=== PATIENT | female | born 1970 | race Asian ===

== ENCOUNTER 2020-05-05 17:23 | Emergency (ER) | payer BC ==
[~2020-05-05] VITALS: Ht 152.4 cm; Wt 61.2 kg
[2020-05-05 18:13] VITALS: BP 110/62
--- NOTE | 2020-05-05 18:13 | NUR ---
ED Nurse Note: Pt walked in from home. Vitals are stable on RA. Pt is febrile. Pt was diagnosed with covid on saturday, 04/29. She now feels short of breath and generalized pain.
--- NOTE | 2020-05-05 18:28 | Emergency Room Report ---
History of Present Illness General Chief Complaint: Fever Source: Patient Present Illness HPI 50 YO female presents to the ED c/o fever at home with persistent cough that is not responding to Z-Pack and mucinex. Pt. denies mucus production. Pt. reports symptoms x 8 days. She reports testing COVID positive 4 days ago. Pt. reports Her PCP rx'd her Z-pack and she has 2 more days of meds. She reports 8/10 in severity body aches. She reports she has taken naproxen twice with some reduction of her symptoms. She denies taking any today. She denies hx of asthma, COPD or smoking. Pt. denies SOB. She reports painful coughing. She denies cardiac hx. She denies CP or palpitations. She denies nasal congestion or rhinorrhea. Pt. is concerned that she may have pneumonia. No other aggravating or relieving factors at this time. She denies getting flu vaccines. 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 COVID-19 Screening: Positive COVID-19 COVID-19 Testing Source: nasal Patient History Past Medical History: see triage record Past Surgical History: none Pertinent Family History: none Now: No Reviewed Nursing Documentation: PMH: Agreed; PSxH: Agreed Nursing Documentation-PMH Past Medical History: No Stated History Review of Systems All Other Systems: negative except mentioned in HPI Physical Exam Vital Signs Date Time Temp Pulse Resp B/P (MAP) Pulse Ox O2 Delivery O2 Flow Rate FiO2 05/05/20 18:03 101.5 96 17 109/61 (77) 97 Room Air Sp02 EP Interpretation: reviewed, normal General Appearance: no apparent distress, alert, GCS 15, non-toxic Head: normocephalic, atraumatic Eyes: bilateral eye normal inspection, bilateral eye PERRL ENT: hearing grossly normal, normal voice Neck: full range of motion Respiratory: chest non-tender, lungs clear, normal breath sounds, no respiratory distress, no accessory muscle use, speaking full sentences, other - scant crackles bilateral Cardiovascular #1: regular rate, rhythm, no edema, normal capillary refill Gastrointestinal: non tender, soft Musculoskeletal: back normal, normal range of motion, gait/station normal, non- tender Neurologic: alert, motor strength/tone normal, oriented x3, sensory intact, responsive, speech normal Psychiatric: judgement/insight normal Skin: no rash, normal color Medical Decision Making PA Attestation Dr. Hannah is my supervising Physician whom patient management has been discussed with. Diagnostic Impression: Primary Impression: COVID-19 virus infection Additional Impressions: Cough Fever due to COVID-19 ER Course 50 YO female presents to the ED c/o fever at home with persistent cough that is not responding to Z-Pack and mucinex. Pt. denies mucus production. Pt. reports symptoms x 8 days. She reports testing COVID positive 4 days ago. Pt. reports Her PCP rx'd her Z-pack and she has 2 more days of meds. She reports 8/10 in severity body aches. She reports she has taken naproxen twice with some reduction of her symptoms. She denies taking any today. She denies hx of asthma, COPD or smoking. Pt. denies SOB. She reports painful coughing. She denies ca rdiac hx. She denies CP or palpitations. She denies nasal congestion or rhinorrhea. Pt. is concerned that she may have pneumonia. No other aggravating or relieving factors at this time. She denies getting flu vaccines. Ddx considered but are not limited to URI, pneumonia, PE, strep pharyngitis, meningitis, COVID-19 Vital signs: Pt. is febrile, the remaining VS are WNL H&PE are most consistent with Viral URI- no meningeal signs, oropharynx is not involved, no evidence of bacterial infection at this time. pt. nontoxic in appearance in no acute distress no respiratory distress or increased respiratory effort. ORDERS: CXR: C/W viral PNA ED INTERVENTIONS: -Tylenol PO - Prednisone 60mg PO. --PT. EDUCATION: conservative symptomatic treatment at home for COVID-19. D/w pt. signs and symptoms that would require emergency room visit/ interventions. DISCHARGE: At this time pt. is stable for d/c to home. Will provide printed patient care instructions, and any necessary prescriptions. Care plan and follow up instructions have been discussed with the patient prior to discharge. Chest X-Ray Diagnostic Results Chest X-Ray Diagnostic Results : Chest X-Ray Ordered: Yes # of Views/Limited/Complete: 1 View Indication: Shortness of Breath EP Interpretation: Yes MAXWELL Xray: Interpretation reviewed, by supervising MD, and agrees with findings. Interpretation: no effusion, no pneumothorax, no acute cardiopulmonary disease, other - Bilateral infiltrates Impression: Other - abnormal Electronically Signed by: Nancy Villegas PA-C Last Vital Signs Date Time Temp Pulse Resp B/P (MAP) Pulse Ox O2 Delivery O2 Flow Rate FiO2 05/05/20 18:03 101.5 96 17 109/61 (77) 97 Room Air Status: improved Disposition: HOME, SELF-CARE Condition: Stable Scripts [pulseoximiter misc.] No Conflict Check UNIT MISC for Covid + , pulse ox monitoring., #1 Prov: Nancy Villegas 05/05/20 Albuterol Sulfate* (Albuterol Sulfate Hfa*) 8.5 Gm Hfa.aer.ad 2 PUFF INH Q4H, #1 INH Prov: Nancy Villegas 05/05/20 Codeine/Promethazine Hcl* (PROMETHAZINE-CODEINE SYRUP*) 118 Ml Syrup 5 ML ORAL Q6H PRN for For Cough, #120 ML 0 Refills Prov: Nancy Villegas 05/05/20 Prednisone* (PREDNISONE*) 20 Mg Tablet 40 MG ORAL DAILY for 5 Days, #10 TAB Prov: Nancy Villegas 05/05/20 Referrals: Ward Chun MD (PCP) Patient Instructions: Cough, Adult, [id number], Fever, Adult Additional Instructions: ~ ~ An emergent medical condition has not been identified based on this patients presentation, exam and any necessary testing/imaging. The patient is determined to be stable for outpatient follow-up and management of symptoms by a primary care provider. Take medications as directed. Do not drink alcohol, drive, or operate heavy machinery while taking Cough Syrup as this may cause drowsiness. Follow up with a Primary Care Provider ( Dr. Chun) in 3-5 days, even if your symptoms have resolved. Return sooner to ED if new symptoms occur, or current symptoms become worse. - Please note that this Emergency Department Report was dictated using medidametricshemodialysis charge nurse technology software, occasionally this can lead to erroneous entry secondary to interpretation by the dictation equipment. Nancy Villegas May 05, 2020 18:28
[2020-05-05] MEDS ORDERED: ALBUTEROL SULF8.5 G1 INH (19:08)
[2020-05-05] MEDS ORDERED: PROMETHAZINE-C118 M1 ORAL (19:08)
[2020-05-05] MEDS ORDERED: PREDNISONE20 MG ORAL (19:08)
--- NOTE | 2020-05-05 19:10 | NUR ---
ED Nurse Note: Recieved pt awake, A&Ox4, and verbal. pt is afebrile and no sob. Vitals are stable; O2 98%, hr 95, bp 129/65, RR 20. pt is waiting for her to pick her up.
[2020-05-05] MEDS ORDERED: [UNRECOGNIZED DRUG - SUPPLY] MISC (19:12)
--- NOTE | 2020-05-05 19:45 | NUR ---
HAND-OFF: Report given to Sedrick CABALLERO
--- NOTE | 2020-05-05 19:47 | NUR ---
ER DISCHARGE NOTE: Patient is cleared to be discharged per ERMD, pt is aox4, on room air, with stable vital signs. pt was given dc and prescription instructions, pt was able to verbalize understanding, pt id band a. pt is able to ambulate with steady gait. pt took all belongings.
[2020-05-05 20:05] VITALS: BP 126/75
--- NOTE | 2020-05-06 17:27 | Diagnostic Imaging Report ---
Indication: Chest pain Technique: One view of the chest Comparison: none Findings: There are bilateral streaky and patchy mid and lower lung opacities. The heart size is normal. The pleural spaces are clear Impression: Bilateral infiltrates, likely multifocal pneumonia, quite likely viral
== END 2020-05-05 19:47 | disposition home or self-care (01) ==
LOC: EMR 18:24
DX: U07.1 COVID-19 (principal); R50.9 Fever, unspecified; R05 Cough
CPT/HCPCS: 71045; 99283